=== PATIENT | male | born 1945 | race Caucasian/White ===

== ENCOUNTER 2020-04-19 16:33 | Inpatient (IN) | payer OTHER ==
[~2020-04-19] VITALS: Ht 167.6 cm; Wt 64.7 kg
[~2020-04-19 16:33] MED LIST: ALDOMET250 MG; ALDOMET250 MG PO; ALEVE220 MG PO; ALPRAZOLAM; CLONAZEPAM OR; CLONAZEPAM PO; GLYCERIN1 EAC1; IBUPROFEN 800800 M1 PO; NORCO 5-325 TA1 EACH PO; SORBITRATE; VICODIN
[2020-04-19 17:16] VITALS: BP 130/82
--- NOTE | 2020-04-19 19:33 | NUR ---
Pt. arrived on the unit 1530 from [facility] via EMS 2 ambulance staff. He was released from [facility] after presenting with lethargy. He was sent to [facility] for lethargy due to a Laundry Presser checking on him this AM finding him more lethargic than usual, slow to answer questions, falling asleep. Yesterday he had been given Oxycodone # 20 pills and Clonazepam #10 pills. This AM there were #6 Oxycodone pills in his bottle. Per the report sheet from [facility] his DX=SI, depressed and per Dr. Koenig's initial admission DX. Patient denied SI. Says he wants to live, just to get his pain medication and get relief from right knee pain. He reports having fallen down a few times this year. He has been sad from a friend having recently. Prior to [email or web address] he was living with a friend and plans on going back to living with that male friend. His allergies need further investigation as some of the reactions for the allergies involve feeling funny. See sheet from [facility] with allergy notes written. His medical history involves: Activity intolerance, Arthritis, Chronic Hepatitis, Anxiety Disorder, Hepatitis C, HTN, Intentional Methadone Overdose, Loss of weight, Hypogonadism, Overweight, Panic attack. Note he has had a 15# weight loss in the past 2 weeks. He declined food initially and would only take food after his pain pill was given. He continues to want further snacks. He was advised not to drink coffee with and after his snacks but took coffee to his room anyway. He was given a walker to use instead of a cane that normally is in use.
[2020-04-19 20:37] VITALS: BP 110/60
[2020-04-19 21:11] LABS: ABSOLUTE NEUTROPHILS 3.2 thou/uL (1.4-8.2); BASOPHILS 0.5 % (0.0-2.0); EOSINOPHILS 1.6 % (0.0-3.0); HEMATOCRIT 37.6 % (42.0-52.0); LYMPHOCYTES 14.2 % (24.0-44.0); MCH 39.1 pg (26.0-34.0); MCHC 34.5 g/dL (28.0-37.0); MCV 113.5 fL (80.0-100.0); POLYS 73.7 % (36.0-66.0); RBC 3.31 mil/uL (4.50-6.00); RDW 14.4 % (10.5-14.5); WBC 4.3 thou/uL (4.0-11.0)
[2020-04-19 21:24] LABS: CALCIUM 7.7 mg/dL (8.5-10.1); CREATININE 1.1 mg/dL (0.7-1.3); POTASSIUM 4.1 mmol/L (3.5-5.1)
[2020-04-19 21:50] LABS: PLATELET COUNT 66 thou/uL (150-400)
--- NOTE | 2020-04-19 23:39 | NUR ---
Care assumed of patient at 1915: Patient seated in bed at start of shift. Patient had poor eye contact, suspicious affect. Nurse introduced self and started to ask assessment questions. Patient became immediately irritable and frustrated and stated "not again, I'm refusing to answer". Patient educated that nurses complete an assessment every shift and it is important for him to comply with all assessments to reach his goal to return home. Patient appeared to calm down and answer most of assessment questions. Alert and oriented x4. When asked about suicide, patient became defensive and stated that "people are making up stories". Declines having SI/HI nor has he ever. Denies AH/VH. Patient fixated on Oxycodone and Clonazepam during nursing assessment. Asked several questions about when he could receive them. Patient reported pain to right knee rated 7/10 but reports that it "feels great" and he doesn't need any pain medications now. Patient took HS medication without difficulty. Ate 100% HS snack. Reports "some" depression and anxiety due to the environment.
[2020-04-20 08:30] VITALS: BP 110/60
[2020-04-20 13:32] VITALS: BP 93/54
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
[2020-04-20 19:22] VITALS: BP 105/52
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
--- NOTE | 2020-04-21 04:08 | NUR ---
Patient currently approached the nurses station reporting that he woke up in a nightmare. When attempting to speak with patient about nightmare, he became agitated and said "it's not a nightmare, it's catalepsy, I went to the [facility], I have it, for real". Patient then started to speak about how the doctor was taking him off of all of his medications. Attempted to speak about current medication regimen and changes that have been made, patient not able to focus nor wants to focus to have conversation. Patient had already removed Nicotine patch which could have been a potential cause of nightmares. Patient then speaking about how he didn't know this was an asylum and will be asking the doctor to leave. Patient retired back to bed for the time being.
--- NOTE | 2020-04-21 04:52 | NUR ---
Assumed care on 04/20/20 @ 19:15, ambulating up ad tristian with a steady gait throughout the mileu. PRN Clonazepam provided @ 20:30, patient became angry with the dosage and reports that he has been taking a higher dose for 20 years and wants more Clonazepam. Education provided that the doctor sets a patient's dose and he will see the doctor after breakfast the next day. Patient cussed at nursing staff and threw his walker against the wall. Stated that he wants to leave the hospital. Informed of the discharge procedure with the Psychiatrist who he will see in the morning. He then apologized about ten minutes later, saying that he was sorry that he had made "such a fuss". Oxy 5mg provided at patient's request @ 0045 for 710 knee pain which only improved on reassessment to 510. Voltaren cream also applied to knee and leg.
[2020-04-21 08:50] VITALS: BP 117/58
[2020-04-21 17:22] VITALS: BP 117/58
--- NOTE | 2020-04-21 17:41 | NUR ---
Pt was in bedroom whenI arived for duty this amsleeping When he awoke he asked for his pain medication and was focused on geting it . He also asked for something for anxiety. Both were given as asked . Asseement
[2020-04-21 19:25] VITALS: BP 123/69
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
--- NOTE | 2020-04-22 03:27 | NUR ---
Assumed care on 04/21/20 @ 19:15, in his room, awake alert x 4, cooperative with assessment. HRRR, Lungs CTA, ABD N x 4 Q. Took HS meds whole with water. PRN Clonazepam 1 mg given @ HS, Voltaren cream applied to R knee. Oxy 5 given @ 23:10 for 9/10 pain level. Patient got some sleep, bed in low position. Reports that no one understands how much pain he is in and that he never asks for his pain medicine early. Education provided as to the reason that staff asks pain level before administering pain medication, and follow up pain assessment. Patient verbalized understanding.
--- NOTE | 2020-04-22 06:41 | NUR ---
slept 8.8 hours overnight
[2020-04-22 07:50] VITALS: BP 90/47
[2020-04-22 19:28] VITALS: BP 99/63
--- NOTE | 2020-04-22 20:03 | NUR ---
PT CAME TO DAY ROOM TODAY C/O NOT SLEEPING WELL. ATE MOST OF THE HIS FOOD , FLUIDS ENCOURAGED. aSSESMENT WAS DONE. HEART BEAT STRONG, REGULAR, LUNGS CLEARX2 PEDAL PULSE REGULAR. BP WAS LOW AND RECHESKED AFTER PT DRANK SOME FLUIDS AND WALKED THE [place] WITH WALKWE DENIED ANY WEAKNESS OR DIZZYNESS. RECHECK OF PD WAS 110/60 P 66. MEDICATIONS TAKEN ORDERED PT OFFERED TOPICAL CREAM AND REFUSED IT. PT VERY DRUG SEEKING AND FOCUSED.
[2020-04-22 20:55] VITALS: BP 118/68
--- NOTE | 2020-04-23 06:07 | NUR ---
04-22-20 CARE TRANSFERED AT 1915 PT SITTING IN DAY ROOM. 2019 PT AAOX3, SKIN W/D, VS MANUAL B/P 118/69, P 67, P 18, T 97.9, O2 SAT 96% RA RR EVEN AND NONLABORED. PT REPORTS PAIN RT KNEE SCALES 9 ON 0-10 SCALE. PT DENIES SI/SH/HI/VAH. PT HAD ZERO DIFFICUTIES DURING MEDICATION ADMIN. AND DURING REASSEMENT SCORED RT KNEE PAIN AT 6 ON 0-10 SCALE. APPROXIMATELY 0350 PT CAME TO NURSING STATION AND REPORTED RT KNEE PAIN AT A 10 ON 0-10 SCALE. DURING REASSEMENT NOTED PT RESTING IN BED WITH EYES CLOSED. ZERO ACUTE DISTRESS NOTED. WILL CONTINUE TO MONITOR PER [facility] PROTOCOL.
[2020-04-23 08:57] VITALS: BP 96/55
[2020-04-23 10:40] VITALS: BP 99/55
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
--- NOTE | 2020-04-23 16:46 | NUR ---
Anay met with pt and discussed at length his d/c plans. Pt states he only has $120 and cannot afford a motel. He does not want to try an [facility] because they manage his medications. He does not want a custodial because he feels intimidated by others there. He states he will stay with his new friend on [address] [place] [id number]. He wants to be in that area becasue it is close to public transportation and his PCP clinic on [address] [place] [phone]. He states he has a Dr lock there on 05/03. ANAY also provided information and the address for [facility] for mental health f/u.
[2020-04-23 20:17] VITALS: BP 94/49
[2020-04-23 21:00] VITALS: BP 94/49
--- NOTE | 2020-04-24 02:45 | NUR ---
Assumed pt care at 1900. Pt A/OX4,pleasant with staff. Denied HI/SI.Asking sba underwriter if he's still scheduled to d/c on Wednesday,informed pt that was still the plan. Pt's BP at HS 94/49,Metoprolol held per protocol,pt encouraged to drink more fluids before going to bed and agreeable to. C/o right knee pain,medicated with Oxy/Voltaren gel and verbalized relief after. Ambulates independently with a RW. Resting quietly at this time w/o any distress noted will continue to monitor pt.
[2020-04-24 08:37] VITALS: BP 94/49
--- NOTE | 2020-04-24 08:39 | NUR ---
SW set up transportation with taxi voucher for pt to go his friends place, and a handout with his d/c summary for [facility] outpt appt and his PCP appt on 05/03.
[2020-04-24] MEDS ORDERED: LIPITOR40 MG PO (09:37)
[2020-04-24] MEDS ORDERED: METOPROLOL TART25 MG PO (09:38)
[2020-04-24] MEDS ORDERED: ASPIR 8181 MG PO (09:38)
[2020-04-24] MEDS ORDERED: OXYCODONE HCL 55 MG PO (09:39)
[2020-04-24] MEDS ORDERED: VITAMIN D325 MC1 PO (09:39)
[2020-04-24] MEDS ORDERED: CLONAZEPAM 1 MG1 M1 PO (09:39)
[2020-04-24] MEDS ORDERED: CALTRATE-600 W1 EACH PO (09:39)
[2020-04-24 12:33] VITALS: BP 94/49
--- NOTE | 2020-04-25 23:15 | D ---
[facility] [place] [address] DISCHARGE SUMMARY Name: TIAGO HART Room #: 523A-A [facility] IN M.R.#: [id number] Admission: 04/19/20 Attend Phys: Otto Koenig DO Discharge: 04/24/20 Date of : 45 Report #: [id number] THIS REPORT FOR: cc: ADELA - No family physician/PCP FAM - No family physician/PCP Otto Koenig DO ~ THIS REPORT FOR: //name// CC: Otto Koenig [facility] physician/PCP DATE OF SERVICE: 04/24/2020 PSYCHIATRIC DISCHARGE SUMMARY ATTENDING PHYSICIAN: Otto Koenig DO FILM COLOR TESTER: Jordi Garcia MD DISCHARGE DIAGNOSES: Adjustment disorder with disturbance of mood, resolved. Unspecified depressive disorder. He has a substance use disorder noted for cocaine in the past in 2010. MEDICAL COMORBIDITIES: As follows: Hypertension, hyperlipidemia, and tobaccoism, declined cessation; history of arthritis, outpatient orthopedic followup; chronic hepatitis C. DISCHARGE PLAN: Discharging to his friend's home in [place], [place]. ACTIVITY LEVEL: As tolerated. No alcohol, no illicit drugs. Smoking cessation strongly urged but the patient declined. DISCHARGE MEDICATIONS: Atorvastatin 40 mg p.o. at bedtime, 30-day supply given; metoprolol 12.5 mg p.o. b.i.d., 30 day supply given; aspirin 81 mg p.o. daily for heart protection, oxycodone IR 5 mg p.o. q. 6 p.r.n., the patient has some remaining outpatient prescription, Rx given for #10; Klonopin 1 mg p.o. at bedtime. The patient reported cataplexy, Rx given for #10, he has some outpatient supply left. Calcium carbonate 1000 mg oral at 0900, 1500, 2100, for replacement. Vitamin D 5000 International Units daily for replacement. DISCHARGE DIET: Regular. ACTIVITY LEVEL: As tolerated. The patient does use a cane or rolling walker. [address] [address] DISCHARGE SUMMARY Name: TIAGO HART Darion Room #: [address] [place] [address] IN M..#: [id number] Admission: 04/19/20 Attend Phys: Otto Koenig DO Discharge: 04/24/20 Date of : 45 Report #: [id number] Outpatient psychiatric care will need to be established with a [facility]. I believe, the closest one in the patient's case is going to be [facility] and he does have an outpatient primary care physician he reports, but they are not listed. LABORATORY DATA: From this admission, hematology on 04/19/2020, H and H 13.0 and 37.6, white count 4.3, platelets 66. Chemistry: Sodium 135, potassium 4.1, chloride 102, bicarbonate 29, anion gap 4, BUN 23, creatinine 1.1, estimated GFR 65, glucose 171, calcium low at 7.7. REASON FOR ADMISSION: Back on 04/19/2020, he was a transfer from [facility]. A 74-year-old male bisexual taken from [facility]. He has been visited by housing case manager there. There was concern of overdose on oxycodone. The patient left [facility] on around 03/18/2020 and has had difficulty maintaining housing. He did have a friend in March and is a complicating factor. HOSPITAL COURSE: The patient was admitted to Geriatric Psychiatry Unit. The patient was well behaved on the unit. No physical or chemical restraints. He was focused on his physical pain for back and legs. This is managed by the hospitalist principally. He did report cataplexy recurring on a low dose of Klonopin, thus he awakened and was feeling paralyzed, so I have reinstituted 1 mg at bedtime. He did not meet criteria for major depression, bipolar depression and therefore was not treated with a specific antidepressant agent. CONDITION AT DISCHARGE: Stable. PHYSICAL EXAMINATION: VITAL SIGNS: At time of discharge, temperature 36.8, pulse 75, respirations 18, BP 94/49, O2 sat 94%. MUSCULOSKELETAL: Abnormal gait, uses an assistive device. Normal station. MENTAL STATUS EXAMINATION: A fairly well-developed, frail-appearing male, appearing greater than stated age. Attention fair. Concentration fair. [facility]. He did feel he was independent. Speech is normal in rate, volume and tone. Thought process is linear and goal directed. Thought content focused on discharge. No psychomotor agitation. No psychomotor retardation. Denied suicidal intent or plan. Denied auditory, visual, or tactile hallucinations. Did report some anticipatory anxiety. Insight limited. Judgment fair. Fund of knowledge average. PROGNOSIS: For this patient is guarded given his behavior of leaving the [facility] [address] [place] [address] DISCHARGE SUMMARY Name: TIAGO HART Room #: 523A-A [facility] IN M.R.#: [id number] Admission: 04/19/20 Attend Phys: Otto Koenig DO Discharge: 04/24/20 Date of : 45 Report #: [id number] detention without preparation, difficulty maintaining housing. remote history of substance use disorder. <ELECTRONICALLY SIGNED> By: Otto Koenig DO 04/25/20 [id number] Otto Koenig DO /nt
== END 2020-04-24 10:45 | disposition home or self-care (01) | DRG 884 ==
LOC: SBH
PROVIDERS: Hospitalist; ADMIT Psychiatry & Neurology Psychiatry; ATTEND Psychiatry & Neurology Psychiatry
DX: F01.50 Vascular dementia, unspecified severity, without behavioral disturbance, psychotic disturbance, mood disturbance, and anxiety (principal); B18.2 Chronic viral hepatitis C; R45.851 Suicidal ideations; F32.9 Major depressive disorder, single episode, unspecified; F19.10 Other psychoactive substance abuse, uncomplicated; I10 Essential (primary) hypertension; E78.5 Hyperlipidemia, unspecified; M19.90 Unspecified osteoarthritis, unspecified site; I25.10 Atherosclerotic heart disease of native coronary artery without angina pectoris; J44.9 Chronic obstructive pulmonary disease, unspecified; F17.210 Nicotine dependence, cigarettes, uncomplicated; F41.9 Anxiety disorder, unspecified; F43.29 Adjustment disorder with other symptoms; M25.561 Pain in right knee; Z79.899 Other long term (current) drug therapy; Z88.0 Allergy status to penicillin; Z88.8 Allergy status to other drugs, medicaments and biological substances; Z90.49 Acquired absence of other specified parts of digestive tract; Z82.49 Family history of ischemic heart disease and other diseases of the circulatory system
CPT/HCPCS: 10880